=== PATIENT | male | born 1965 | race Caucasian/White ===

== ENCOUNTER 2017-11-12 21:06 | Emergency (ER) | payer SELFPAY ==
[~2017-11-12] VITALS: Ht 175.3 cm; Wt 86.2 kg
[~2017-11-12 21:06] MED LIST: ATIVAN0.5 MG PO; AUGMENTIN 875 M1 TAB PO; K-DUR 20MEQ TA20 MEQ PO; MOTRIN800 MG PO; MULTIVITAMIN1 TAB PO; PERCOCET 325 MG1 TA2 PO; PRAVASTATIN SOD40 MG PO; PRILOSEC40 MG PO; TENORETIC 50 501 TAB PO
--- NOTE | 2017-11-12 21:49 | ED GI/GU/ABDOMINAL COMPLAINT ---
History of Present Illness General Chief Complaint: Abdominal Pain/Flank Pain Stated Complaint: L LOWER QUADRANT PAIN,HEADACHE Source: patient, old records Exam Limitations: no limitations Vital Signs & Intake/Output Vital Signs & Intake/Output Vital Signs Date Time Temp Pulse Resp B/P B/P Pulse O2 O2 Flow FiO2 Mean Ox Delivery Rate 11/13 0013 88 16 133/89 Room Air 11/12 2139 98.6 90 16 133/94 98 Room Air ED Intake and Output 11/13 0000 11/12 1200 Intake Total 0 Output Total Balance 0 Intake, Oral 0 Patient 190 lb Weight Allergies Coded Allergies: NO KNOWN ALLERGIES (04/02/11) Reconcile Medications AMOXICILLIN/POTASSIUM CLAV (Augmentin 875-125 Tablet) 875 MG/125 MG TAB 1 TAB PO BID dental infection Atenolol/Chlorthalidone (Tenoretic 50 50 MG-25 MG) 1 TAB TAB 1 TAB PO DAILY BP (Reported) Dicyclomine HCl 10 MG CAPSULE 1 CAP PO TID PRN pain Ibuprofen (Motrin) 800 MG TAB 1 TAB PO TID pain Ibuprofen (Motrin) 800 MG TAB 1 TAB PO TID PRN PAIN Lorazepam (Ativan) 0.5 MG TAB 1 TAB PO BID PRN ANXIETY Multivitamin (Multiple Vitamins) 1 EACH TABLET 1 TAB PO DAILY SUPPLEMENT ( Reported) Omeprazole (Prilosec) 40 MG ECC 1 TAB PO DAILY PUD OXYCODONE HCL/ACETAMINOPHEN (Percocet 5-325 MG Tablet) 325 MG/5 MG TAB 1-2 TAB PO Q4-6 PRN PRN PAIN ten tabs... [id number] POTASSIUM CHLORIDE (K-Dur) 20 MEQ TAB 1 TAB PO DAILY HYPOKALEMIA POTASSIUM CHLORIDE (K-Dur) 20 MEQ TAB.ER.PRT 1 TAB PO DAILY low potassium POTASSIUM CHLORIDE (K-Dur) 20 MEQ TAB.ER.PRT 1 TAB PO DAILY HYPOKALEMIA Pravastatin Sodium 40 MG TABLET 1 TAB PO QPM CHOLESTEROL (Reported) Triage Note: 52M C/O LLQ PAIN X1 WEEK. LAST BM TODAY, SOMETIMES NORMAL SOMETIMES DIARRHEA. TAKING AUGMENTIN BUT UNSURE WHY. AFEBRILE. +N/-V. DENIES CP/SOB. APPEARS NSR ON EKG Triage Nurses Notes Reviewed? yes Onset: Abrupt Duration: week(s): (1), constant Timing: recent history Quality/Severity: aching, cramping Severity Numbers: 5 Location: left lower quadrant Radiation: no radiation Activities at Onset: none Prior Abdominal Problems: none No Modifying Factors: none Associated Symptoms: DENIES HPI: 52-year-old male with history of hypertension and high cholesterol presents to the ER complaining of a one-week history of left lower quadrant abdominal pain associated with diarrhea. No black or bloody stools no chest pain nausea vomiting. No history of abdominal surgeries in the past. The patient states he saw his primary care physician last week and was prescribed Augmentin which she' s been on for the past 5 days but is unsure why. No history of similar symptoms in the past. No fever chills urinary urgency frequency dysuria. He is not taking anything specifically for the pain (Jose Ponce) Past History Travel History Traveled to [place] past 21 day No Medical History Any Pertinent Medical History? see below for history Neurological: NONE EENT: NONE Cardiovascular: hypertension, hyperlipidemia Respiratory: NONE Gastrointestinal: NONE Hepatic: NONE Renal: NONE Musculoskeletal: NONE Psychiatric: depression Endocrine: NONE Blood Disorders: NONE Cancer(s): NONE TOBACCO WETTER/Reproductive: NONE Surgical History Surgical History: N Psychosocial History What is your primary language Nepali Tobacco Use: Never used Family History Hx Contributory? No (Jose Ponce) Review of Systems Review of Systems Constitutional: Reports: see HPI. Comments Review of systems: See HPI, All other systems negative. Constitutional, no chills no fever, HEENT: no sore throat no congestion Cardiovascular: No chest pain Skin: no rashes, no change in skin Respiratory: No dyspnea no cough no sputum GI: No nausea no vomiting,diarrhea, : No dysuria No hematuria, no frequency Muscle skeletal: No joint pain, no back pain, Neurologic: , no headache Psych: No stress Heme/endocrine: No bruising Immunology: No lymphadenopathy (Jose Ponce) Physical Exam Physical Exam General Appearance: well developed/nourished, alert, awake Gastrointestinal: normal bowel sounds, soft, non-tender, no organomegaly Comments: Well-developed well-nourished person in no acute distress HEENT: Normal EENT exam; PERRL, EOMI, HEAD is atraumatic. moist mucous membranes. Neck: Supple, normal range of motion Back: Nontender, no CVA tenderness. Full range of motion Cardiovascular: Regular rate and rhythms no murmurs rub Respiratory: No respiratory distress. Patient speaking in full complete sentences. Breath sounds clear to auscultation bilaterally: NO W/R/R Abdomen: Soft, nontender nondistended, no appreciable organomegaly. Normal bowel sounds. No rebound/guarding, No appreciable enlargement of the abdominal aorta, No ascites. Extremity: No edema, full range of motion of extremities Neuro: Alert oriented x3, motor sensory normal, There were no obvious focal neurologic abnormalities. Skin: No appreciable rash on exposed skin, skin is warm and dry. Psych: Mood and affect is normal, memory and judgment is normal. Core Measures ACS in differential dx? No Sepsis Present: No Sepsis Focused Exam Completed? No ([place] STODDARD,Jose) Progress Differential Diagnosis: appendicitis, biliary colic, bowel obstruction, colon cancer, cholecystitis, diverticulitis, gastritis, hernia, inflamm bowel dis, pancreatitis, peptic ulcer, PUD/GERD, perforated viscous, ureterolithiasis, urinary retention, UTI/pyelo Plan of Care: Orders Procedure Date/time Status TROPONIN LEVEL 11/12 2107 Complete LIPASE 11/12 2107 Complete HEPATIC FUNCTION PANEL 11/12 2107 Complete CBC WITHOUT DIFFERENTIAL 11/12 2107 Complete BASIC METABOLIC PANEL 11/12 2107 Complete AMYLASE 11/12 2107 Complete EKG 11/12 2107 Active Current Medications Sig/Alysa Start time Last Medication Dose Stop Time Status Admin Morphine Sulfate 2 MG ONCE ONE 11/12 2329 CAN (Morphine) 11/12 2331 Laboratory Tests 11/12/17 2155: Anion Gap 16, Estimated GFR > 60, BUN/Creatinine Ratio 24.3, Glucose 95, Calcium 10.3 H, Total Bilirubin 0.3, Direct Bilirubin 0.2, AST 34, ALT 52, Alkaline Phosphatase 65, Troponin I < 0.01, Total Protein 8.0, Albumin 5.1 H, Amylase 85 , Lipase 134, CBC w Diff NO MAN DIFF REQ, RBC 6.05, MCV 86.1, MCH 28.5, MCHC 33.0, RDW 12.8, MPV 8.7, Gran % 57.4, Lymphocytes % 33.3, Monocytes % 5.3, Eosinophils % 3.7, Basophils % 0.3, Absolute Granulocytes 5.1, Absolute Lymphocytes 2.9, Absolute Monocytes 0.5, Absolute Eosinophils 0.3, Absolute Basophils 0 Labs ordered old records are CAT scan ordered patient resting in no apparent distress at this time. Declining anything for pain when offered 2245 discussed with patient at length all of his lab results he is resting in no apparent distress again declining anything for pain when offered 0010 patient resting in no apparent distress he's declined any pain medicine throughout his emergency room visit. I discussed with him at length his results and incidental findings on CAT scan a copy of everything will be provided with him and his paperwork, I advise close follow-up with his primary care this week he will continue taking the Augmentin. Prescription for Bentyl will be provided return precautions were discussed at length he feels comfortable with plan cleared for discharge. Diagnostic Imaging: Viewed by Me: CT Scan. Discussed w/RAD: CT Scan. Radiology Impression: PATIENT: SALOME POLLARD PRESENT AGE: 52 PATIENT ACCOUNT NO: [id number] : 67 LOCATION: [facility] ORDERING PHYSICIAN: Jose STODDARD SERVICE DATE: 11/12/17 EXAM TYPE: CAT - CT ABD & PELVIS W IV CONTRAST EXAMINATION: CT ABD PELVIS W IV CONTRAST CLINICAL INFORMATION: Diverticulitis LEFT lower quadrant pain COMPARISON: None TECHNIQUE: Multidetector volumetric imaging was performed from the superior aspect of the liver through the pubic symphysis 94 mL 320 Optiray injected Sagittal and coronal reformatted images were obtained on the technologist's workstation. DLP: 488 mGy-cm FINDINGS: LOWER THORAX: Included lung bases are clear. HEPATOBILIARY: No focal hepatic lesions. No biliary ductal dilatation. GALLBLADDER: Gallbladder unremarkable. SPLEEN: Spleen is normal in size. PANCREAS: Pancreas is atrophic. Pancreatic duct is not dilated. STOMACH AND GASTROINTESTINAL TRACT: Stomach is grossly unremarkable. There is no bowel distention or thickening. No CT evidence of appendicitis. ADRENALS: Right adrenal nodule measure 3.3 x 2.3 cm the attenuation of its matrix is 36, this is higher than the threshold expected for adenoma. Raising concern for possible adrenal lesion versus lipid poor adenoma. Evaluation is limited on this single phase CT scan. Left adrenal is normal. KIDNEYS/URETERS: No hydronephrosis, or solid mass lesions. There is a 3 mm nonobstructing stone upper calyx LEFT kidney. Tiny hypodensity in the RIGHT kidney too small to characterize. Perinephric fat is clear. URINARY BLADDER: Unremarkable PELVIC VISCERA: Rectum and perirectal fat are clear. No pelvic lymphadenopathy. No free air or fluid. PERITONEUM: No free air or fluid. LYMPH NODES: No lymphadenopathy. VASCULAR: Mild vascular calcifications present. BONES , ABDOMINAL WALL AND SOFT TISSUES: Age-appropriate changes of the spine and skeletal system, no destructive bone lesion. Sclerotic density in the LEFT iliac bone likely bone island. IMPRESSION: 1. Tiny 3 mm nonobstructing stone upper calyx LEFT kidney. 2. No CT evidence of the diverticulitis. No explanation for patient's acute pain symptoms. 3. Right adrenal mass 3.3 x 2.3 x 3.4 cm, the attenuation of its matrix is higher than expected for simple adenoma, consider further evaluation with MRI or multiphase adrenal CT scan. DICTATED BY: Starr Akhtar MD DATE/TIME DICTATED:11/12/172348 DRYWALL CONTRACTOR:ROSALEE DATE/ TIME TRANSCRIBED:11/12/172348 CONFIDENTIAL, DO NOT COPY WITHOUT APPROPRIATE AUTHORIZATION. <Electronically signed in Other Vendor System> SIGNED BY: Starr Akhtar MD 11/13/17 0002 Initial ED EKG: normal intervals, normal p-waves, normal QRS complex, normal sinus rhythm Prior EKG: unchanged (Jose Ponce) Departure Departure Time of Disposition: 2317 Disposition: HOME OR SELF CARE Condition: Stable Clinical Impression Primary Impression: Abdominal pain Qualifiers: Abdominal location: left lower quadrant Qualified Code: R10.32 - Left lower quadrant pain Secondary Impressions: Adrenal mass, Kidney stone Referrals: Estuardo BROWN,Kane Quiroz Additional Instructions: Follow-up with your primary care physician this week. Continue taking the antibiotics as prescribed. Bentyl for pain. Return anytime sooner if your symptoms worsen. Departure Forms: Customer Survey General Discharge Information Prescriptions: Current Visit Scripts Dicyclomine HCl 1 CAP PO TID PRN pain #12 CAP (Jose Ponce) PA/METAL NEUTRALIZER Co-Sign Statement Statement: ED Attending supervision documentation- [] I saw and evaluated the patient. I have also reviewed all the pertinent lab results and diagnostic results. I agree with the findings and the plan of care as documented in the PA's/METAL NEUTRALIZER's documentation. [X] I have reviewed the ED Record and agree with the PA's/METAL NEUTRALIZER's documentation. [] Additions or exceptions (if any) to the PAs/METAL NEUTRALIZER's note and plan are summarized below: [] (Shaheed BROWN,Tan Segal)
[2017-11-12 22:19] LABS: ABSOLUTE BASOPHIL COUNT 0 /CUMM (0.0-0.2); ABSOLUTE EOSINOPHIL COUNT 0.3 /CUMM (0.0-0.7); ABSOLUTE GRANULOCYTE CT 5.1 /CUMM (1.4-6.5); ABSOLUTE LYMPH COUNT 2.9 /CUMM (1.2-3.4); ABSOLUTE MONOCYTE COUNT 0.5 /CUMM (0.10-0.60); BASOPHIL % 0.3 % (0.0-2.0); EOSINOPHIL % 3.7 % (0-5); GRANULOCYTE % 57.4 % (42.2-75.2); HEMATOCRIT 52.1 % (42-52); MEAN CORPUSCULAR HGB 28.5 PG (27.0-31.0); MEAN CORPUSCULAR VOLUME 86.1 FL (80.0-94.0); MEAN PLATELET VOLUME 8.7 FL (7.4-10.4); PLATELET COUNT 236 /CUMM (130-400); RBC DISTRIBUTION WIDTH 12.8 % (11.5-14.5); RED BLOOD CELL CT 6.05 /CUMM (4.70-6.10); WHITE BLOOD CELL COUNT 8.8 /CUMM (4.8-10.8)
[2017-11-12] MEDS ORDERED: LANTUS SOL100 UNIT/1 SC (23:19)
--- NOTE | 2017-11-13 00:02 | CT SCAN REPORT ---
EXAMINATION: CT ABD PELVIS W IV CONTRAST CLINICAL INFORMATION: Diverticulitis LEFT lower quadrant pain COMPARISON: None TECHNIQUE: Multidetector volumetric imaging was performed from the superior aspect of the liver through the pubic symphysis 94 mL 320 Optiray injected Sagittal and coronal reformatted images were obtained on the technologist's workstation. DLP: 488 mGy-cm FINDINGS: LOWER THORAX: Included lung bases are clear. HEPATOBILIARY: No focal hepatic lesions. No biliary ductal dilatation. GALLBLADDER: Gallbladder unremarkable. SPLEEN: Spleen is normal in size. PANCREAS: Pancreas is atrophic. Pancreatic duct is not dilated. STOMACH AND GASTROINTESTINAL TRACT: Stomach is grossly unremarkable. There is no bowel distention or thickening. No CT evidence of appendicitis. ADRENALS: Right adrenal nodule measure 3.3 x 2.3 cm the attenuation of its matrix is 36, this is higher than the threshold expected for adenoma. Raising concern for possible adrenal lesion versus lipid poor adenoma. Evaluation is limited on this single phase CT scan. Left adrenal is normal. KIDNEYS/URETERS: No hydronephrosis, or solid mass lesions. There is a 3 mm nonobstructing stone upper calyx LEFT kidney. Tiny hypodensity in the RIGHT kidney too small to characterize. Perinephric fat is clear. URINARY BLADDER: Unremarkable PELVIC VISCERA: Rectum and perirectal fat are clear. No pelvic lymphadenopathy. No free air or fluid. PERITONEUM: No free air or fluid. LYMPH NODES: No lymphadenopathy. VASCULAR: Mild vascular calcifications present. BONES, ABDOMINAL WALL AND SOFT TISSUES: Age-appropriate changes of the spine and skeletal system, no destructive bone lesion. Sclerotic density in the LEFT iliac bone likely bone island. IMPRESSION: 1. Tiny 3 mm nonobstructing stone upper calyx LEFT kidney. 2. No CT evidence of the diverticulitis. No explanation for patient's acute pain symptoms. 3. Right adrenal mass 3.3 x 2.3 x 3.4 cm, the attenuation of its matrix is higher than expected for simple adenoma, consider further evaluation with MRI or multiphase adrenal CT scan.
[2017-11-13] MEDS ORDERED: DICYCLOMINE HCL10 M1 PO (00:12)
[2017-11-13 00:13] VITALS: BP 133/89
== END 2017-11-13 00:17 ==
LOC: ERH 21:06
PROVIDERS: Pediatrics
DX: N20.0 Calculus of kidney (principal); E27.8 Other specified disorders of adrenal gland
CPT/HCPCS: 74177; 93005; 93010